=== PATIENT | female | born 1975 | race Caucasian/White ===

== ENCOUNTER 2018-07-03 08:52 | Emergency (ER) | payer SELFPAY ==
[2018-07-03 08:56] VITALS: BP 134/90
--- NOTE | 2018-07-03 08:58 | ER Report ---
History and Physical Time Seen By MD: 08:58 HPI/ROS CHIEF COMPLAINT: Neck pain HISTORY OF PRESENT ILLNESS: Patient is a 43-year-old female who presents to the emergency department with complaint of right sided upper neck pain with radiation to the face and into the trapezius area of her right symptoms began approximately 4 days ago. Symptoms were much milder at that time she did get some relief with Biofreeze and heating packs a long showers. This morning she woke up in severe pain and with a "frozen neck". She denies any numbness or tingling down into her arms. She denies chest pain or shortness of breath. She did experience this one time approximate 17 years ago and had spontaneous resolution of symptoms. Allergies: Coded Allergies: No Known Drug Allergies (Unverified , 07/03/18) Home Meds No Active Prescriptions or Reported Meds Past Medical/Surgical History History of cluster headaches Constitutional Vital Sign - Last 24 Hours 07/03/18 08:56 Temp 98.9 Pulse 90 Resp 20 B/P (MAP) 134/90 Pulse Ox 94 Physical Exam General Appearance: The patient is alert, has no immediate need for airway protection and no current signs of toxicity. Eyes: Pupils equal and round no injection. Extraocular muscles are intact and symmetrical Respiratory: Chest is non tender, lungs are clear to auscultation. Cardiac: regular rate and rhythm Musculoskeletal: Neck: Neck is noted for tenderness along the right sternocleidomastoid and trapezius. Extremities have full range of motion and are non tender. Skin: No rashes or lesions. Medical Decision Making ED Course/Re-evaluation ED Course Plan at this time will be to place patient on muscle relaxant and some pain medication for a cervical strain. Also provide contact number for primary care provider patient is new to [facility] Decision to Disposition Date: Jul 03, 2018 Decision to Disposition Time: 09:15 Depart Departure Latest Vital Signs Vital Signs Date Time Temp Pulse Resp B/P (MAP) Pulse Ox O2 Delivery O2 Flow Rate FiO2 07/03/18 08:56 98.9 90 20 134/90 94 Impression: Primary Impression: SPASMODIC TORTICOLLIS Condition: Improved Disposition: HOME OR SELF-CARE New Scripts Methocarbamol (ROBAXIN-750) 750 Mg Tablet 1500 MG PO QID PRN for mr, #30 TAB 0 Refills Prov: DIGNA MCKNIGHT MD 07/03/18 Departure Forms: ER Transition Record, Medications Reconciliation, Off Work/School Form, School or Work Release?: Work Number of days to be released: 2 Patient Portal Information Patient Instructions: Acute Neck Pain (ED), Cervical Neck Strain Exercises (GEN) DIGNA MCKNIGHT MD Jul 03, 2018 08:58
[2018-07-03] MEDS ORDERED: METH-543 PO (09:16)
[2018-07-03] MEDS ORDERED: LOR5/325 PO (09:16)
[2018-07-03] MEDS ORDERED: IBUPROFEN 600 MG TAB PO ONE (09:25)
== END 2018-07-03 09:32 | disposition home or self-care (01) ==
LOC: ER 09:03
DX: G24.3 Spasmodic torticollis (principal)
CPT/HCPCS: 99283

== ENCOUNTER → 2019-01-28 | Outpatient (REF) | payer BC ==
[~2019-01-28] MED LIST: LOR5/325 PO; METH-543 PO
[2019-01-28 12:39] LABS: PLATELET COUNT, AUTOMATED 263 K/uL (150-450)
== END ==
PROVIDERS: ATTEND Nurse Practitioner Family
DX: R07.9 Chest pain, unspecified (principal)
CPT/HCPCS: 82040; 82247; 82310; 82374; 82435; 82565; 82947; 84075; 84132; 84155; 84295; 84450; 84460; 84520; 85025; 85379